=== PATIENT | female | born 1930 | race Caucasian/White ===

== ENCOUNTER 2021-02-02 12:24 | Emergency (ER) | payer OTHER ==
[2021-02-02] MEDS ORDERED: ACETAMINOPHEN 1000 MG/100 ML VIAL (NON FORMULARY) IVPB ONE (12:47)
[2021-02-02] MEDS ORDERED: SODIUM CHLORIDE 500 ML IV STA ×2 (13:02→19:42)
[2021-02-02 13:04] VITALS: BMI 27.0
[2021-02-02] MEDS ORDERED: PIPERACILLIN/TAZOB 4.5 GM 4.5 GM in DEXTROSE 5%-WATER 100 ML IVPB ONE (13:14)
[2021-02-02] MEDS ORDERED: VANCOMYCIN 1 GM in D5W (PRE-DOCKED) 1,000 MG/250 ML IVPB ONE (13:19)
[2021-02-02] MEDS ORDERED: ACETAMINOPHEN INJECTION 100 ML IVPB ONE (13:53)
[2021-02-02] MEDS ORDERED: VANCOMYCIN 1 GRAM (PRE-DOCKED) 1,000 MG/250 ML BAG IVPB ONE (13:54)
[2021-02-02] MEDS ORDERED: PIPERACILLIN/TAZOB 4.5 GM 4.5 GM/100 ML BAG IVPB ONE (13:54)
[2021-02-02 14:05] LABS: HEMATOCRIT 29.6 % (32.4-45.2); HEMOGLOBIN 9.4 GM/dL (10.7-15.3); MCH 23.3 pg (25.7-33.7); MCHC 31.7 g/dl (32.0-36.0); MEAN CELL VOLUME 73.5 fl (80-96); MEAN PLT VOLUME 9.1 fl (7.5-11.1); PLATELET COUNT 305 10^3/uL (134-434); RBC 4.03 M/mm3 (3.60-5.2); RDW 19.7 % (11.6-15.6); WHITE BLOOD COUNT 29.1 K/mm3 (4.0-10.0)
[2021-02-02 14:07] LABS: EPI CELLS >36 /uL (0-25.1); HYALINE CASTS 13 /uL (0-3.1); PH,URINE 8.5 (5.0-8.0); URINE APPEARANCE TURBID; URINE BACTERIA >9,000 /uL (0-1359); URINE BILIRUBIN NEGATIVE (NEGATIVE); URINE COLOR YELLOW; URINE GLUCOSE (UA) 1+ (NEGATIVE); URINE KETONE NEGATIVE (NEGATIVE); URINE LEUK ESTERASE 3+ (NEGATIVE); URINE NITRITE NEGATIVE (NEGATIVE); URINE PROTEIN 3+ (NEGATIVE); URINE WBC 4536 /uL (0-25.8)
[2021-02-02 14:09] LABS: VENOUS BASE EXCESS 4.5 mmol/L (-2-2); VENOUS O2 SATURATION 53.3 % (70-80); VENOUS PCO2 45.1 mmHg (38-52); VENOUS PH 7.431 (7.310-7.410)
[2021-02-02 14:10] LABS: INR 1.73 (0.83-1.09); PROTHROMBIN TIME (PATIENT) 20.9 SEC (9.7-13.0)
[2021-02-02 14:13] LABS: ACTIVATED PTT 33.3 SECONDS (25.2-36.5)
[2021-02-02 14:19] LABS: YEAST NON SEEN (NEGATIVE)
[2021-02-02 14:20] LABS: CHLORIDE 95 mmol/L (98-107); SODIUM 132 mmol/L (136-145)
[2021-02-02 14:22] LABS: CALCIUM 9.3 mg/dL (8.5-10.1)
[2021-02-02 14:23] LABS: ALBUMIN 2.5 g/dl (3.4-5.0); GLUCOSE,RANDOM 282 mg/dL (74-106)
[2021-02-02 14:26] LABS: CREATININE 0.9 mg/dL (0.55-1.3); SGOT/AST 13 U/L (15-37); SGPT/ALT 12 U/L (13-61)
[2021-02-02 14:27] LABS: BILIRUBIN,TOTAL 0.4 mg/dL (0.2-1)
[2021-02-02 14:28] LABS: TOT PROT 8.9 g/dl (6.4-8.2)
[2021-02-02 14:29] LABS: ALK PHOS 113 U/L (45-117)
[2021-02-02 14:30] LABS: LACTIC ACID 2.5 mmol/L (0.4-2.0)
[2021-02-02 14:34] LABS: ANION GAP 10 MMOL/L (8-16); CO2 27 mmol/L (21-32)
[2021-02-02 14:48] LABS: ANISOCYTOSIS 3+; MACROCYTOSIS 0; PLATELET ESTIMATE NORMAL
[2021-02-02 19:36] LABS: LACTIC ACID 2.5 mmol/L (0.4-2.0)
[2021-02-03 01:55] VITALS: BP 111/77; PULSE 100; TEMP 99
== END 2021-02-03 01:56 | disposition short-term general hospital (02) ==
LOC: JER 12:24
PROC: 3E033GC Introduction of Other Therapeutic Substance into Peripheral Vein, Percutaneous Approach (ICD-10-PCS; principal; 2021-02-02)
DX: L08.89 Other specified local infections of the skin and subcutaneous tissue (principal); L89.159 Pressure ulcer of sacral region, unspecified stage; N39.0 Urinary tract infection, site not specified
CPT/HCPCS: 36415; 70450-TC; 70460-TC; 70487-TC; 70491-TC; 71045-TC-FY; 80053; 81003; 82803; 83605; 84484; 85025; 85610; 85730; 87040; 87086; 93005; 93010; 99291; C9803; J0131; Q9967; U0003; U0005

== ENCOUNTER 2022-04-05 16:23 | Inpatient (IN) | payer OTHER ==
[2022-04-05] MEDS ORDERED: LACTATED RINGERS SOLUTION 1000 ML INFUS.BAG IV ONE ×2 (17:08)
[2022-04-05] MEDS ORDERED: PIPERACILLIN/TAZOB 4.5 GM 4.5 GM in DEXTROSE 5%-WATER 100 ML IVPB ONE (17:09)
[2022-04-05] MEDS ORDERED: VANCOMYCIN 1 GM in D5W (PRE-DOCKED) 1,000 MG/250 ML IVPB ONE (17:09)
[2022-04-05] MEDS ORDERED: MEROPENEM 1 GM in DEXTROSE 5%-WATER 100 ML IVPB ONE (17:15)
[2022-04-05] MEDS ORDERED: PIPERACILLIN/TAZOB 4.5 GM 4.5 GM/100 ML BAG IVPB ONE (17:15)
[2022-04-05] MEDS ORDERED: MEROPENEM 1 GM VIAL (RESTRICTED TO ID) IVPB ONE (17:16)
[2022-04-05] MEDS ORDERED: VANCOMYCIN/WATER FOR INJ (PEG) 1,000 MG/200 ML BAG IVPB ONE ×2 (17:16)
[2022-04-05] MEDS ORDERED: ACETAMINOPHEN 1000 MG/100 ML BAG IVPB ONE (17:35)
[2022-04-05] MEDS ORDERED: ACETAMINOPHEN INJECTION 100 ML IVPB ONE (17:36)
[2022-04-05 18:08] VITALS: BMI 75.6
[2022-04-05 18:08] LABS: VENOUS BASE EXCESS 1.5 mmol/L (-2-2); VENOUS O2 SATURATION 22.3 % (70-80); VENOUS PCO2 49.1 mmHg (38-52); VENOUS PH 7.362 (7.310-7.410)
[2022-04-05 18:15] LABS: LACTIC ACID 5.4 mmol/L (0.4-2.0)
[2022-04-05 18:19] LABS: BASO % 0.3 % (0-2.0); EOS % 0.6 % (0-4.5); HEMATOCRIT 23.8 % (32.4-45.2); HEMOGLOBIN 7.2 GM/dL (10.7-15.3); LYMPH % 13.8 % (8-40); MCH 23.1 pg (25.7-33.7); MCHC 30.2 g/dl (32.0-36.0); MEAN CELL VOLUME 76.4 fl (80-96); MONO % 3.1 % (3.8-10.2); NEUT % 82.2 % (42.8-82.8); PLATELET COUNT 337 10^3/uL (134-434); RBC 3.11 M/mm3 (3.60-5.2); RDW 20.6 % (11.6-15.6); WHITE BLOOD COUNT 29.3 K/mm3 (4.0-10.0)
[2022-04-05 18:23] LABS: CHLORIDE 104 mmol/L (98-107); SODIUM 144 mmol/L (136-145)
[2022-04-05 18:24] LABS: INR 1.57 (0.83-1.09); PROTHROMBIN TIME (PATIENT) 18.1 SEC (9.7-13.0)
[2022-04-05 18:26] LABS: ACTIVATED PTT 33.8 SECONDS (25.2-36.5); ALBUMIN 1.9 g/dl (3.4-5.0); CO2 28 mmol/L (21-32); GLUCOSE,RANDOM 247 mg/dL (74-106); MAGNESIUM 3.5 mg/dL (1.8-2.4)
[2022-04-05 18:30] LABS: CREATININE 3.7 mg/dL (0.55-1.3); SGOT/AST 27 U/L (15-37); SGPT/ALT 12 U/L (13-61)
[2022-04-05 18:31] LABS: BILIRUBIN,TOTAL 0.4 mg/dL (0.2-1); TOT PROT 7.6 g/dl (6.4-8.2)
[2022-04-05 18:32] LABS: ALK PHOS 83 U/L (45-117)
[2022-04-05 18:47] LABS: ANISOCYTOSIS 3+; MACROCYTOSIS 1+; OVALOCYTE 1+; TARGET CELLS 1+
[2022-04-05] MEDS ORDERED: NOREPINEPHRINE BITARTRATE 16,000 MCG in SODIUM CHLORIDE 484 ML IV SCH (19:00)
[2022-04-05 19:03] LABS: ANION GAP 12 MMOL/L (8-16); BLOOD UREA NITROGEN 124.6 mg/dL (7-18)
[2022-04-05] MEDS ORDERED: CALCIUM GLUCONATE 10% - 1,000 MG/10 ML VIAL IVPUSH ONE (19:11)
[2022-04-05] MEDS ORDERED: DEXTROSE 50%-WATER - 25 GM/50 ML VIAL IVPUSH ONE (19:11)
[2022-04-05] MEDS ORDERED: INSULIN REGULAR HUMAN 100 UNITS/ML *VIAL IVPUSH ONE (19:11)
[2022-04-05] MEDS ORDERED: CALCIUM GLUCONATE 10% - 1,000 MG/10 ML VIAL ONE (19:26)
[2022-04-05] MEDS ORDERED: DEXTROSE 50%-WATER - 25 GM/50 ML VIAL ONE (19:26)
[2022-04-05] MEDS ORDERED: MORPHINE SULFATE/0.9% NACL/PF 100 MG/100 ML BAG ONE (20:02)
[2022-04-05] MEDS: MORPHINE SULFATE/0.9% NACL/PF 100 MG/100 ML BAG IVPB SCH (20:53)
[2022-04-06] MEDS: MORPHINE SULFATE/0.9% NACL/PF 100 MG/100 ML BAG IVPB SCH (19:45)
[2022-04-06] MEDS ORDERED: MORPHINE SULFATE/0.9% NACL/PF 100 MG/100 ML BAG ONE (19:45)
[2022-04-07] MEDS ORDERED: SODIUM CHLORIDE 1,000 ML IV STA (05:09)
[2022-04-07 07:11] VITALS: TEMP 99.4
[2022-04-07] MEDS ORDERED: MORPHINE 100 MG/100 ML MG IVPB SCH (22:37)
[2022-04-07] MEDS ORDERED: MORPHINE 100 MG/100 ML MG ONE (22:45)
[2022-04-07] MEDS: MORPHINE SULFATE/0.9% NACL/PF 100 MG/100 ML BAG IVPB SCH (22:45)
[2022-04-09 00:20] VITALS: BP 90/38; PULSE 61
[2022-04-09 02:11] VITALS: RESP 14
== END 2022-04-09 02:31 | disposition expired | DRG 871 ==
LOC: JER 16:23 → JERBED 18:53
PROVIDERS: ADMIT Internal Medicine; ATTEND Family Medicine
PROC: 5A1945Z Respiratory Ventilation, 24-96 Consecutive Hours (ICD-10-PCS; principal; 2022-04-05)
DX: A41.89 Other specified sepsis (principal); L89.154 Pressure ulcer of sacral region, stage 4; R65.21 Severe sepsis with septic shock; R53.2 Functional quadriplegia; J96.11 Chronic respiratory failure with hypoxia; N17.9 Acute kidney failure, unspecified; E87.20 Acidosis, unspecified; E87.5 Hyperkalemia; I11.0 Hypertensive heart disease with heart failure; I50.9 Heart failure, unspecified; R41.82 Altered mental status, unspecified; I48.91 Unspecified atrial fibrillation; E78.5 Hyperlipidemia, unspecified; K21.9 Gastro-esophageal reflux disease without esophagitis; D72.829 Elevated white blood cell count, unspecified; F20.9 Schizophrenia, unspecified; E20.9 Hypoparathyroidism, unspecified; L89.220 Pressure ulcer of left hip, unstageable; L89.611 Pressure ulcer of right heel, stage 1; E11.65 Type 2 diabetes mellitus with hyperglycemia; I46.9 Cardiac arrest, cause unspecified; Z93.0 Tracheostomy status; Z51.5 Encounter for palliative care
CPT/HCPCS: 0241U-QW; 36415; 71045-TC-FY; 80053; 80162; 82272; 82803; 82962; 83605; 83735; 84484; 85025; 85610; 85730; 86850; 86900; 86901; 87040; 93005; 93010; 94002; 99291; E0372